=== PATIENT | male | born 1955 | race African-American/Black ===

== ENCOUNTER 2019-06-06 17:16 | Inpatient (IN) ==
[2019-06-06] MEDS ORDERED: ACETAMINOPHEN 325 MG TABLET PO PRN (20:17)
[2019-06-06] MEDS ORDERED: GLUCAGON 1 MG VIAL IM PRN (20:17)
[2019-06-06] MEDS ORDERED: DEXTROSE 50% 25 GM/50 ML VIAL IV PRN (20:17)
[2019-06-06] MEDS ORDERED: SODIUM CHLORIDE 0.9% 1,000 ML IV SCH (20:30)
[2019-06-06] MEDS: INSULIN LISPRO 100 UNIT/ML SUBCUT SCH (22:48)
[2019-06-07 04:22] LABS: Basophils % 0.2 % (0.0-0.8); Eosinophils % 0.7 % (0.00-10.9); Hematocrit 22.1 VOL% (42.0-52.0); Hemoglobin 6.8 GM/DL (14.0-18.0); Immature Granulocytes % 0.4 %; Immature Granulocytes Absolute 0.02 #; Lymphocytes # 0.4 10*3/uL (1.4-4.0); Lymphocytes % 6.9 % (21.2-54.2); Mean Corpuscular HGB Conc 30.8 GM/DL (32-36); Mean Platelet Volume 10.2 FL (9.6-12.0); Monocytes % 16.6 % (1.7-12.7); Neutrophils % 75.2 % (38.7-73.9); Platelet Count 242 T/CUMM (130-400); Red Cell Distribution Width 15.9 % (9.3-17.3); White Blood Count 5.5 T/CUMM (4-12)
[2019-06-07 04:50] LABS: Eosinophils 1 % (0-10); Hypochromasia 1+; Lymphocytes 5 % (20-55); Platelet Estimate Adequate; Segmented Neutrophils 76 % (50-85); Total Cells Counted 100
[2019-06-07 04:51] LABS: Burr Cells Slight; Ovalocytes Slight
[2019-06-07 04:53] LABS: Albumin 2.2 G/DL (3.4-5.0); Bilirubin,Total 0.8 MG/DL (0.2-1.0); Calcium 7.7 MG/DL (8.5-10.1); Total Protein 6.3 G/DL (6.4-8.3)
[2019-06-07] MEDS: HEPARIN 5,000 UNIT/1 ML VIAL SUBCUT SCH ×2 (05:31→17:59)
[2019-06-07 05:44] LABS: Amorphous Crystals,Urine Occasional /HPF (Few); Apearance,Urine CLOUDY (Clear); Bacteria,Urine Occasional /HPF (Few); Bilirubin,Urine Negative (Negative); Blood, Urine Large mg/dL (Negative); Glucose,Urine (UA) 50 mg/dL (Negative); Ketones,Urine Negative (Negative); Mucus,Urine Occasional /LPF (Occasional); Nitrite,Urine Negative (Negative); Protein,Urine >=500 MG/DL; RBC,Urine 1503 /HPF (0-4); Squamous Epithelial Cell,Urine Occasional /HPF (0-10); Urine Specific Gravity 1.015 (1.001-1.035); Urine Urobilinogen < 2.0 EU/DL (0.2-1.0); WBC,Urine 76 /HPF (0-6)
[2019-06-07 05:46] LABS: Urine Color Yellow (Yellow)
[2019-06-07] MEDS: PANTOPRAZOLE 40 MG TABLET PO SCH (09:31)
[2019-06-07] MEDS: INSULIN LISPRO 100 UNIT/ML SUBCUT SCH ×4 (09:32→21:33)
[2019-06-07 09:39] LABS: % Iron Saturation 17.6 % (18-50); Ferritin 183.1 ng/ml (26-388)
[2019-06-07 09:52] LABS: Basophils % 0.4 % (0.0-0.8); Eosinophils # 0.1 10*3/uL (0.0-0.87); Eosinophils % 0.9 % (0.00-10.9); Hematocrit 22.9 VOL% (42.0-52.0); Hemoglobin 7.1 GM/DL (14.0-18.0); Immature Granulocytes % 0.2 %; Immature Granulocytes Absolute 0.01 #; Lymphocytes # 0.4 10*3/uL (1.4-4.0); Lymphocytes % 7.8 % (21.2-54.2); Mean Corpuscular Volume 84.8 FL (87-102); Mean Platelet Volume 10.6 FL (9.6-12.0); Monocytes % 12.7 % (1.7-12.7); Platelet Count 255 T/CUMM (130-400); Red Cell Distribution Width 16.2 % (9.3-17.3); White Blood Count 5.7 T/CUMM (4-12)
[2019-06-07 10:18] LABS: Parathyroid Hormone Intact 187.4 PG/ML (18.4-80.1)
[2019-06-07 10:35] LABS: Folate 6.8 NG/ML (5.4-24.0); Vitamin B12 433 PG/ML (211-911)
[2019-06-07 10:59] LABS: Sedimentation Rate-Westergren 102 MM/HR (0-20)
[2019-06-07] MEDS: cefTRIAXone 2,000 MG in SYRINGE 1 EACH IV SCH (11:12)
[2019-06-07] MEDS: CALCITRIOL 0.25 MCG CAPSULE PO SCH (14:30)
[2019-06-07] MEDS: CYANOCOBALAMIN 500 MCG TABLET PO SCH (14:31)
[2019-06-07] MEDS ORDERED: SODIUM CHLORIDE 0.9% 1,000 ML IV PRN (15:18)
[2019-06-07] MEDS ORDERED: ACETAMINOPHEN 325 MG TABLET PO PRN (15:18)
[2019-06-07] MEDS: FOLIC ACID 1 MG TABLET PO SCH (21:32)
[2019-06-07] MEDS: SODIUM BICARBONATE 650 MG TABLET PO SCH (21:32)
[2019-06-07] MEDS: ONDANSETRON 4 MG/2 ML VIAL IV PRN (23:22)
[2019-06-08] MEDS ORDERED: LACTULOSE 20 GM/30 ML UDCUP PO ONE (02:16)
[2019-06-08 04:38] LABS: Hematocrit 27.8 VOL% (42.0-52.0); Hemoglobin 8.8 GM/DL (14.0-18.0)
[2019-06-08] MEDS: HEPARIN 5,000 UNIT/1 ML VIAL SUBCUT SCH ×2 (06:22→17:05)
[2019-06-08] MEDS: INSULIN LISPRO 100 UNIT/ML SUBCUT SCH ×4 (08:45→22:02)
[2019-06-08 09:25] LABS: Hemoglobin A1 (Alkaline) 97.8 % (96.5-98.5); Hemoglobin A2 (Alkaline) 2.2 % (1.5-3.5)
[2019-06-08] MEDS: cefTRIAXone 2,000 MG in SYRINGE 1 EACH IV SCH (09:54)
[2019-06-08] MEDS: ONDANSETRON 4 MG/2 ML VIAL IV PRN (09:54)
[2019-06-08] MEDS: CYANOCOBALAMIN 500 MCG TABLET PO SCH (09:56)
[2019-06-08] MEDS: SODIUM BICARBONATE 650 MG TABLET PO SCH ×3 (09:56→21:13)
[2019-06-08] MEDS: PANTOPRAZOLE 40 MG TABLET PO SCH (09:56)
[2019-06-08] MEDS: CALCITRIOL 0.25 MCG CAPSULE PO SCH (09:56)
[2019-06-08 11:20] LABS: Calcium 7.8 MG/DL (8.5-10.1); Osmolality,Calculated 305.7 MOS/KG (273-304)
[2019-06-08] MEDS: FOLIC ACID 1 MG TABLET PO SCH (21:13)
[2019-06-09] MEDS: HEPARIN 5,000 UNIT/1 ML VIAL SUBCUT SCH ×2 (05:43→17:35)
[2019-06-09 05:52] LABS: Basophils % 0.3 % (0.0-0.8); Eosinophils # 0.1 10*3/uL (0.0-0.87); Eosinophils % 0.8 % (0.00-10.9); Hematocrit 29.8 VOL% (42.0-52.0); Hemoglobin 9.5 GM/DL (14.0-18.0); Immature Granulocytes % 0.4 %; Immature Granulocytes Absolute 0.03 #; Lymphocytes # 0.5 10*3/uL (1.4-4.0); Lymphocytes % 6.9 % (21.2-54.2); Mean Corpuscular HGB Conc 31.9 GM/DL (32-36); Mean Corpuscular Volume 84.9 FL (87-102); Mean Platelet Volume 11.1 FL (9.6-12.0); Monocytes % 14.8 % (1.7-12.7); Neutrophils % 76.8 % (38.7-73.9); Platelet Count 297 T/CUMM (130-400); Red Blood Count 3.51 MC/CUMM (3.8-5.5); Red Cell Distribution Width 16.4 % (9.3-17.3); White Blood Count 7.6 T/CUMM (4-12)
[2019-06-09 06:19] LABS: Calcium 8.4 MG/DL (8.5-10.1); Osmolality,Calculated 300.7 MOS/KG (273-304)
[2019-06-09] MEDS: INSULIN LISPRO 100 UNIT/ML SUBCUT SCH ×4 (07:53→21:45)
[2019-06-09] MEDS ORDERED: SODIUM CHLORIDE 0.9% 250 ML IV SCH (08:00)
[2019-06-09] MEDS ORDERED: DEXTROSE 10% 250 ML IV ONE (08:30)
[2019-06-09] MEDS ORDERED: LABETALOL 100 MG/20 ML VIAL IV ONE (09:00)
[2019-06-09] MEDS: SODIUM BICARBONATE 650 MG TABLET PO SCH ×3 (09:00→21:47)
[2019-06-09] MEDS ORDERED: PROPOFOL 200 MG/20 ML VIAL IV ONE (09:00)
[2019-06-09] MEDS ORDERED: LIDOCAINE 2% 5 ML VIAL ONE (09:00)
[2019-06-09] MEDS: CALCITRIOL 0.25 MCG CAPSULE PO SCH (12:45)
[2019-06-09] MEDS: cefTRIAXone 2,000 MG in SYRINGE 1 EACH IV SCH (12:45)
[2019-06-09] MEDS: hydrALAZINE 25 MG TABLET PO SCH ×2 (12:45→21:45)
[2019-06-09] MEDS: CYANOCOBALAMIN 500 MCG TABLET PO SCH (12:45)
[2019-06-09] MEDS: PANTOPRAZOLE 40 MG TABLET PO SCH (12:45)
[2019-06-09] MEDS: CYPROHEPTADINE 4 MG TABLET PO SCH ×2 (15:20→21:46)
[2019-06-09] MEDS ORDERED: TAMSULOSIN 0.4 MG CAPSULE PO SCH (21:00)
[2019-06-09] MEDS ORDERED: MIRTAZAPINE 15 MG TABLET PO SCH (21:00)
[2019-06-09] MEDS: FOLIC ACID 1 MG TABLET PO SCH (21:45)
[2019-06-10 05:48] LABS: Calcium 7.7 MG/DL (8.5-10.1); Osmolality,Calculated 304.6 MOS/KG (273-304)
[2019-06-10] MEDS: HEPARIN 5,000 UNIT/1 ML VIAL SUBCUT SCH (05:59)
[2019-06-10 06:18] LABS: Basophils % 0.5 % (0.0-0.8); Eosinophils # 0.1 10*3/uL (0.0-0.87); Hematocrit 24.6 VOL% (42.0-52.0); Immature Granulocytes % 0.4 %; Immature Granulocytes Absolute 0.02 #; Lymphocytes # 0.9 10*3/uL (1.4-4.0); Lymphocytes % 15.1 % (21.2-54.2); Mean Corpuscular HGB Conc 31.3 GM/DL (32-36); Mean Platelet Volume 10.6 FL (9.6-12.0); Monocytes % 20.8 % (1.7-12.7); Neutrophils % 61.2 % (38.7-73.9); Platelet Count 215 T/CUMM (130-400); Red Blood Count 2.86 MC/CUMM (3.8-5.5); Red Cell Distribution Width 16.5 % (9.3-17.3); White Blood Count 5.6 T/CUMM (4-12)
[2019-06-10 06:19] LABS: Hemoglobin 7.7 GM/DL (14.0-18.0)
[2019-06-10 06:40] LABS: Eosinophils 3 % (0-10); Hypochromasia 1+; Lymphocytes 16 % (20-55); Ovalocytes Slight; Platelet Estimate Adequate; Segmented Neutrophils 63 % (50-85); Total Cells Counted 100
[2019-06-10 07:51] VITALS: BP 143/85
[2019-06-10] MEDS: INSULIN LISPRO 100 UNIT/ML SUBCUT SCH ×2 (08:06→11:27)
[2019-06-10] MEDS: CALCITRIOL 0.25 MCG CAPSULE PO SCH (08:07)
[2019-06-10] MEDS: CYANOCOBALAMIN 500 MCG TABLET PO SCH (08:07)
[2019-06-10] MEDS: SODIUM BICARBONATE 650 MG TABLET PO SCH (08:07)
[2019-06-10] MEDS: CYPROHEPTADINE 4 MG TABLET PO SCH (08:07)
[2019-06-10] MEDS: PANTOPRAZOLE 40 MG TABLET PO SCH (08:07)
[2019-06-10] MEDS: hydrALAZINE 25 MG TABLET PO SCH (08:07)
[2019-06-10] MEDS ORDERED: FINASTERIDE 5 MG TABLET PO SCH (09:00)
== END 2019-06-10 12:05 | disposition home or self-care (01) | DRG 699 ==
LOC: SUATTDRO 18:53 → N.5E 18:53
PROVIDERS: ADMIT Internal Medicine; ATTEND Hospitalist